=== PATIENT | male | born 1950 | race Caucasian/White ===

== ENCOUNTER 2017-12-13 15:15 | Emergency (ER) | payer BC, MEDICARE, SELFPAY ==
[2017-12-13 15:16] VITALS: BP 135/84; PULSE 98; RESP 16; TEMP 36.8; BMI 27.9
--- NOTE | 2017-12-13 16:31 | ED.VISSUMM ---
- ER Visit Summary Date of Service: 12/13/17 Chief Complaint: Right knee pain and swelling after minor injury History of Present Illness: The patient is a 67 M who presents because of right knee pain and swelling that occurred after twisting mechanism injury this past Thursday. He also complains of right lower back pain with pain radiating to the popliteal fossa. He states weightbearing causes him significant discomfort. He has no known history of knee injury. He denies any bowel or bladder dysfunction. He denies any saddle paresthesia or anesthesia. He denies foot drop. He denies weakness in his quadricep muscles going up or down steps. He states ibuprofen does help the pain. There is no history of gout or pseudogout. He has no contraindication to NSAIDs. He has no symptoms of claudication. Physical Examination: Vital signs are marked for slight elevation blood pressure 135/84. There is no pain palpation of the right or left lower back. Straight leg test and crossover tests are negative. Bowstring sign is negative. Patella and ankle reflex are 1+ and symmetric. EHL is intact. DP and PT pulses are palpable. Hair is noted on his toes. He has normal sensation. The right knee is swollen compared to left. The patella is questionably ballotable. There is an effusion. He has minimal midline joint discomfort. Varus valgus stress testing does not cause any discomfort or laxity. Antonino's test was negative. Modified McMurphy was positive for click but no pain. He is able to extend to 170? and flex to 90?. Test Results: 4 view x-ray of the knee was obtained and reveals osteoarthritic changes with asymmetry. There is an effusion noted. Emergency Department Course and Treatment: X-ray was obtained to evaluate for arthritis versus fracture versus other cause for his effusion and pain. Treatment Plan: Since he has not seen an orthopedic surgeon and does not have a preference he was assigned to Dr. Ronni Reis who is on-call for orthopedics. Disposition: Discharged with crutches and outpatient follow-up Impression: 1. Right knee effusion secondary to meniscus injury 2. Right lower back musculoskeletal pain without sciatica This note was generated with Skytide[employer] software. It may contain incorrect words, spelling, and punctuation that were not noted in review of the chart prior to signing ED Disposition - Plan for ED Patient: Disposition: Home or Assisted Living Chief Complaint: Lower Extremity Injury Instructions: ED Meniscal Injury Knee Poss, ED Sprain Strain Lumbar Referrals: Simona Ng PA [Primary Care Provider] - Shiva Reis MD [STAFF PHYSICIAN] - 5-7 Days Additional Instructions: Weight-bear as tolerated.
== END 2017-12-13 16:52 | disposition home or self-care (01) ==
PROVIDERS: Emergency Provider Emergency Medicine; Family Provider Physician Assistant; PCP Physician Assistant
DX: M25.461 Effusion, right knee (principal); M54.5 Low back pain; M17.11 Unilateral primary osteoarthritis, right knee; S89.91XA Unspecified injury of right lower leg, initial encounter; X50.1XXA Overexertion from prolonged static or awkward postures, initial encounter; Y93.9 Activity, unspecified; Y92.89 Other specified places as the place of occurrence of the external cause; Y99.8 Other external cause status
CPT/HCPCS: 73564; 99283

== ENCOUNTER 2018-03-14 09:01 | Emergency (ER) | payer BC, SELFPAY ==
[2018-03-14 09:02] VITALS: BP 136/81; PULSE 101; RESP 17; TEMP 36.8; O2SAT 95; BMI 28.0
--- NOTE | 2018-03-14 09:48 | ED.VISSUMM ---
- ER Visit Summary Date of Service: 03/14/18 Chief Complaint: Scalp rash History of Present Illness: The patient is a 67 M no senior past medical history. Patient's had a rash around his left side of his face and scalp for the last 5 days. He said it really is not painful. He does have some watering of his eyes but no visual change nor any eye pain. No discharge. States he is never had anything like this before just kind of appeared 5 days ago and now is noticed it on his scalp. Physical Examination: Older male no acute distress. Vital signs are stable afebrile. H EENT exam is a rash around his left thigh and left forehead consistent with shingles. He also has on top of his scalp. He really does not complain of any pain. There is no discharge. This could also be a secondary folliculitis with cellulitis from shaving his scalp. But around the left forehead neither does appear to be shingles. Pupils are round reactive to light. His left eye is watering. It is injected. There is no discharge. There is no rash to the tip of his nose or Sy sign. Neck nontender. Lungs are clear equal symmetrical bilaterally. Heart regular rhythm no murmur. Abdomen soft nontender. He is moving all 4 extremities. The rash is nowhere else on his body. Is not on his back or chest or abdomen. Neurologically is awake and alert with no focal deficits. Test Results: None Emergency Department Course and Treatment: I did do a slit lamp exam of his left eye with floor seen. There are no lesions noted. Treatment Plan: Patient will be treated as shingles with Famvir. I will also cover potential secondary bacterial infection with Keflex. I will have him follow-up with ophthalmology to have his eye reevaluated. At this time I do not see any corneal involvement. Disposition: Discharge Impression: Acute left facial and scalp rash secondary to shingles This note was generated with [employer] dictation software. It may contain incorrect words, spelling, and punctuation that were not noted in review of the chart prior to signing ED Disposition - Plan for ED Patient: Chief Complaint: Rash Referrals: Care Physician,No Primary [Primary Care Provider] -
--- NOTE | 2018-03-14 09:51 | ED.DEP ---
ED Disposition - Plan for ED Patient: Disposition: Home or Assisted Living Chief Complaint: Rash Instructions: ED Shingles Prescriptions: Cephalexin [Keflex] 500 mg PO Q6 #30 cap Famciclovir [Famvir] 500 mg PO TID #21 tab Referrals: Guanako Borrego MD [STAFF PHYSICIAN] - As soon as possible Additional Instructions: Call follow-up with the patternmaker helper to reevaluate your left eye. But this time it does not appear to be any involvement with the shingles. The rash you have will be treated as shingles with Famvir 1 pill 3 times a day. We will also treat for possible secondary skin infection with Keflex 1 pill 4 times a day.
--- NOTE | 2018-03-14 09:55 | DCINST.ED_ITS ---
ED Disposition - Plan for ED Patient: Disposition: Home or Assisted Living Chief Complaint: Rash Instructions: ED Shingles Prescriptions: Cephalexin [Keflex] 500 mg PO Q6 #30 cap Famciclovir [Famvir] 500 mg PO TID #21 tab Referrals: Guanako Borrego MD [STAFF PHYSICIAN] - As soon as possible Additional Instructions: Call follow-up with the java j2ee technical lead to reevaluate your left eye. But this time it does not appear to be any involvement with the shingles. The rash you have will be treated as shingles with Famvir 1 pill 3 times a day. We will also treat for possible secondary skin infection with Keflex 1 pill 4 times a day.
[2018-03-14] MEDS: Fluorescein 1 MG STRIP 1 STRIP LEFT EYE (09:56)
[2018-03-14] MEDS: Cephalexin 250 MG Capsule 500 MG PO (09:56)
== END 2018-03-14 09:57 | disposition home or self-care (01) ==
PROVIDERS: Emergency Provider Emergency Medicine
DX: B02.9 Zoster without complications (principal)
CPT/HCPCS: 99283